=== PATIENT | female | born 1965 | race Caucasian/White ===

== ENCOUNTER → 2016-09-09 | Outpatient (CLI) | payer BC ==
--- NOTE | 2016-09-12 10:20 | MM ---
Reason for exam: screening (asymptomatic). Last mammogram was performed 4 years and 7 months ago. History: Patient is postmenopausal. Physical Findings: A clinical breast exam by your physician is recommended on an annual basis and results should be correlated with mammographic findings. MG Screening Mammo w CAD Bilateral CC and MLO view(s) were taken. Prior study comparison: February 16, 2012, bilateral digital screening mammo w/CAD. The breast tissue is heterogeneously dense. This may lower the sensitivity of mammography. There is no discrete abnormality. No significant changes when compared with prior studies. ASSESSMENT: Negative, BI-RAD 1 RECOMMENDATION: Routine screening mammogram of both breasts in 1 year.
== END | disposition home or self-care (01) ==
LOC: RADMAMWWP 14:39
PROVIDERS: ATTEND Family Medicine
DX: Z12.31 Encounter for screening mammogram for malignant neoplasm of breast (principal)

== ENCOUNTER 2020-01-02 08:30 | Day surgery (SDC) | payer BC, MEDICARE, OTHER ==
[~2020-01-02 08:30] MED LIST: LACTATED RINGERS 1,000 ML IV SCH
[2020-01-02 08:56] VITALS: TEMP 98.6
--- NOTE | 2020-01-02 09:12 | P.GSHP ---
History of Present Illness H&P Date: 01/02/20 Chief Complaint: GI bleed This a 54-year-old female referred from Dr. Earl. Patient rents today for colonoscopy due to issues with GI bleed. Past Medical History Past Medical History: GERD/Reflux, Hypertension Additional Past Medical History / Comment(s): KIDNEY STONES History of Any Multi-Drug Resistant Organisms: None Reported Past Surgical History: Section, Tubal Ligation Additional Past Surgical History / Comment(s): colonoscopy. lithotripsy. d & c Past Anesthesia/Blood Transfusion Reactions: Motion Sickness, Postoperative Nausea & Vomiting (PONV) Past Psychological History: No Psychological Hx Reported Smoking Status: Former smoker Past Alcohol Use History: None Reported Additional Past Alcohol Use History / Comment(s): SMOKED FOR 40+ .5PPD, QUITE SEVERAL YEARS Past Drug Use History: None Reported - Past Family History Mother Family Medical History: Cancer Medications and Allergies Home Medications Medication Instructions Recorded Confirmed Type Metoprolol Tartrate [Lopressor] 25 mg PO BID 04/17/14 12/31/19 History Omeprazole [PriLOSEC] 20 mg PO QAM 04/17/14 12/31/19 History ALPRAZolam [Xanax] 0.25 mg PO HS PRN 12/31/19 12/31/19 History Atorvastatin [Lipitor] 20 mg PO HS 12/31/19 12/31/19 History FLUoxetine HCL [PROzac] 20 mg PO QAM 12/31/19 12/31/19 History Meloxicam 7.5 mg PO BID 12/31/19 12/31/19 History Norethindrone-E.estradiol-Iron 1 tab PO DAILY 12/31/19 12/31/19 History [Junel Fe 1 mg-20 Mcg Tablet] Cholecalciferol [Vitamin D3] 1 tab PO 01/02/20 History Allergies Allergy/AdvReac Type Severity Reaction Status Date / Time nitrofurantoin AdvReac Itching Verified 12/31/19 11:52 [From Macrobid] nitrofurantoin AdvReac Itching Verified 12/31/19 11:52 macrocrystalline [From Macrobid] sulfamethoxazole AdvReac Itching Verified 12/31/19 11:52 [From Bactrim] trimethoprim [From Bactrim] AdvReac Itching Verified 12/31/19 11:52 Surgical - Exam Vital Signs Temp Pulse Resp Pulse Ox 98.6 F 68 16 98 01/02/20 08:55 01/02/20 08:55 01/02/20 08:55 01/02/20 08:55 - General well developed, well nourished, no distress - Eyes PERRL - ENT normal pinna - Neck no masses - Respiratory normal expansion - Cardiovascular Rhythm: regular - Abdomen Abdomen: soft, non tender Assessment and Plan Assessment: GI bleed. We'll perform colonoscopy.
[2020-01-02] MEDS ORDERED: LIDOCAINE 1% (10MG/ML) FOR IV START INTRADERMA ONE (09:13)
[2020-01-02] MEDS ORDERED: PROPOFOL 10 MG/ML 20 ML VIAL IV ONE (09:17)
--- NOTE | 2020-01-02 09:27 | P.OP ---
Date of Procedure: 01/02/20 Preoperative Diagnosis: Anemia Postoperative Diagnosis: External hemorrhoids Procedure(s) Performed: Colonoscopy Anesthesia: JOSE Surgeon: Jonathan Carrillo Pathology: none sent Condition: stable Disposition: PACU Description of Procedure: The patient's placed on the endoscopy table in the lateral position. She received IV sedation. Digital rectal exam performed which revealed external hemorrhoids. Flexible colonoscope was then placed patient anus and passed throughout the entire colon. The ileocecal valve sutures. The cecum, ascending and transverse colon appeared normal. The descending and sigmoid colon appeared normal. Back the rectum and this appeared normal. Scope withdrawn for patient. Is presumed patient may have had rectal bleeding from external hemorrhoids.
[2020-01-02 10:20] VITALS: BP 175/78; PULSE 88; RESP 18
== END 2020-01-02 10:23 | disposition home or self-care (01) ==
LOC: ORWHC2ENDO 08:30
PROVIDERS: ATTEND Surgery
DX: K64.4 Residual hemorrhoidal skin tags (principal); K92.2 Gastrointestinal hemorrhage, unspecified; D64.9 Anemia, unspecified; Z87.891 Personal history of nicotine dependence; I10 Essential (primary) hypertension; Z87.442 Personal history of urinary calculi; E78.2 Mixed hyperlipidemia; G56.03 Carpal tunnel syndrome, bilateral upper limbs; K21.9 Gastro-esophageal reflux disease without esophagitis; E55.9 Vitamin D deficiency, unspecified; Z98.51 Tubal ligation status; Z98.890 Other specified postprocedural states; Z83.6 Family history of other diseases of the respiratory system; Z82.61 Family history of arthritis; Z79.1 Long term (current) use of non-steroidal anti-inflammatories (NSAID); Z79.3 Long term (current) use of hormonal contraceptives; Z79.899 Other long term (current) drug therapy; Z88.2 Allergy status to sulfonamides; Z88.1 Allergy status to other antibiotic agents; Z91.012 Allergy to eggs; Z91.011 Allergy to milk products
CPT/HCPCS: 45378; J2704

== ENCOUNTER → 2021-03-24 | Outpatient (CLI) | payer BC ==
--- NOTE | 2021-03-24 10:48 | ECHOF ---
Referral Reason:I10 hypertension MEASUREMENTS -------- HEIGHT: 157.5 cm WEIGHT: 88.5 kg BP: 156/98 RVIDd: 2.8 cm (< 3.3) IVSd: 1.0 cm (0.6 - 1.1) LVIDd: 4.8 cm (3.9 - 5.3) LVPWd: 0.9 cm (0.6 - 1.1) IVSs: 1.6 cm LVIDs: 3.1 cm LVPWs: 1.6 cm LA Diam: 3.0 cm (2.7 - 3.8) LAESV Index (A-L): 24.73 ml/m Ao Diam: 3.4 cm (2.0 - 3.7) AV Cusp: 2.3 cm (1.5 - 2.6) MV EXCURSION: 14.273 mm (> 18.000) MV EF SLOPE: 70 mm/s (70 - 150) EPSS: 0.6 cm MV E Lebron: 0.81 m/s MV DecT: 177 ms MV A Lebron: 0.95 m/s MV E/A Ratio: 0.85 AR PHT: 635 ms RAP: 5.00 mmHg RVSP: 26.30 mmHg FINDINGS -------- Sinus rhythm. This was a technically good study. The left ventricular size is normal. Left ventricular wall thickness is normal. Overall left vent ricular systolic function is normal with, an EF between 60 - 65 %. The right ventricle is normal in size. Normal LA size by volume 22+/-6 ml/m2. The right atrium is normal in size. Interatrial and interventricular septum intact. There is aebg-ov-gecxmedx aortic regurgitation. There is trace to mild mitral regurgitation. Mild tricuspid regurgitation present. The pulmonic valve was not well visualized. The aortic root size is normal. Normal inferior vena cava with normal inspiratory collapse consistent with estimated right atrial pre ssure of 5 mmHg. There is no pericardial effusion. CONCLUSIONS -------- 1. The left ventricular size is normal. 2. Left ventricular wall thickness is normal. 3. Overall left ventricular systolic function is normal with, an EF between 60 - 65 %. 4. There is okgy-tz-bqvszgpc aortic regurgitation. 5. There is trace to mild mitral regurgitation. 6. Mild tricuspid regurgitation present. 7. There is no pericardial effusion. GREEN HIDE INSPECTOR: Makayla Melendez RDCS
== END | disposition home or self-care (01) ==
LOC: RADECHMAIN 08:28
PROVIDERS: ATTEND Family Medicine
DX: I08.1 Rheumatic disorders of both mitral and tricuspid valves (principal)
CPT/HCPCS: 93306

== ENCOUNTER → 2022-08-24 | Outpatient (CLI) | payer BC ==
[~2022-08-24] MED LIST changes: -LACTATED RINGERS 1,000 ML IV SCH; +REGADENOSON 0.4 MG/5 ML SYRINGE IV PRN
--- NOTE | 2022-08-24 10:26 | CA ---
Transthoracic Echo Report Name: Erika Green Age: 56 Gender: F : 1965 Exam Date: 08/24/2022 08:34 Exam Location: [place] [facility] Ht (in): 62 Wt (lb): 200 Ordering Physician: Pham Fontenot DO Attending/Referring Phys: Saadia Mayberry [facility] Manager [employer] Makayla Melendez RDCS Procedure CPT: Indications: R07.89 R0602 Cardiac Hx: Technical Quality: Good Contrast 1: Total Dose (mL): Contrast 2: Total Dose (mL): MEASUREMENTS (Male / Female) Normal Values 2D ECHO LV Diastolic Diameter PLAX 4.3 cm 4.2 - 5.9 / 3.9 - 5.3 cm LV Systolic Diameter PLAX 3.0 cm IVS Diastolic Thickness 1.1 cm 0.6 - 1.0 / 0.6 - 0.9 cm LVPW Diastolic Thickness 1.2 cm 0.6 - 1.0 / 0.6 - 0.9 cm LV Relative Wall Thickness 0.5 RV Internal Dim ED PLAX 3.2 cm LA Systolic Diameter LX 3.2 cm 3.0 - 4.0 / 2.7 - 3.8 cm LV Diastolic Volume MOD 4C 106.0 cm??? LV Systolic Volume MOD 4C 50.4 cm??? LV Ejection Fraction MOD 4C 52.5 % LV Diastolic Length 4C 7.7 cm LV Systolic Length 4C 6.3 cm LV Diastolic Volume MOD 2C 116.0 cm??? LV Systolic Volume MOD 2C 51.9 cm??? LV Ejection Fraction MOD 2C 55.3 % LV Diastolic Length 2C 9.2 cm LV Systolic Length 2C 7.2 cm LA Volume 49.5 cm??? 18 - 58 / 22 - 52 cm??? M-MODE Aortic Root Diameter MM 3.2 cm MV E Point Septal Separation 0.6 cm AV Cusp Separation MM 2.3 cm DOPPLER AV Peak Velocity 154.8 cm/s AV Peak Gradient 9.6 mmHg AI Peak Velocity 385.6 cm/s AI Peak Gradient 59.5 mmHg AI Pressure Half Time 689.4 ms MV Area PHT 3.5 cm??? Mitral E Point Velocity 94.4 cm/s Mitral A Point Velocity 103.1 cm/s Mitral E to A Ratio 0.9 MV Deceleration Time 217.1 ms MV E' Velocity 7.1 cm/s Mitral E to MV E' Ratio 13.4 TR Peak Velocity 230.7 cm/s TR Peak Gradient 21.3 mmHg Right Ventricular Systolic Press 26.3 mmHg FINDINGS Left Ventricle Left ventricular ejection fraction is estimated at 55-60 %. Left ventricular cavity size normal. Mildly increased septal wall thickness. Mildly increased posterior wall thickness. Normal left ventricular wall motion. Right Ventricle Normal right ventricular size and function. Right ventricular systolic pressure within normal limits. Right Atrium Normal right atrial size. Left Atrium Normal left atrial size. Mitral Valve Structurally normal mitral valve. Trace to mild mitral regurgitation. Aortic Valve Trileaflet aortic valve. Mild aortic regurgitation. Tricuspid Valve Structurally normal tricuspid valve. Trace to mild tricuspid regurgitation. Pulmonic Valve Structurally normal pulmonic valve. No pulmonic regurgitation. Pericardium Normal pericardium. No pericardial effusion. Aorta Normal size aortic root and proximal ascending aorta. CONCLUSIONS Normal LV systolic function Mild aortic regurgitation Previewed by: Dr. Bernardo Silverio MD (Electronically Signed) Final Date: 24 August 2022 10:25
--- NOTE | 2022-08-24 12:02 | CA ---
Lexiscan Nuclear Stress Test Report Name: Erika Green Exam Date: 08/24/2022 09:24 Exam Location: [place] Stress Ht (in): 62 Wt (lb): 200 BSA: 1.91 Ordering Phys: Pham Fontenot DO Referring Phys: Saadia Mayberry Technologist: REY, Age: 56 Gender: F : 1965 Procedure CPT: Indications: R07.89 R0602 ICD-10 Codes: Patient History: Chest pain and shortness of breath Medications: Meds past 24 hrs: Pretest Chest Pain: STRESS TEST Lexiscan Protocol Exercise Duration (min:sec): 02:[address] Depressions (mm): Angina Score: Mauro Score: Resting HR (bpm): 67 Peak HR (bpm): 104 Resting BP (mmHg): 105 / 70 Peak BP (mmHg): 120 / 81 MPHR: 165 Target HR: 140 % MPHR: 63 METS: 1.0 Total Dose: Peak Dose: Atropine: Double Product: 46529 BP Response: Stress Termination: Infusion complete Stress Symptoms: No chest pain or symptoms Stress Summary: ECG ANALYSIS Resting ECG: Normal sinus rhythm normal axis normal intervals Stress ECG: Patient received Lexiscan as a protocol did not have chest pain or diagnostic ST segment depression CONCLUSIONS Negative stress test by EKG criteria Cardiolite portion of the stress test will be reported separately Dr. Bernardo Silverio MD (Electronically Signed) Final Date: 24 August 2022 12:01
--- NOTE | 2022-08-25 10:50 | NM ---
EXAMINATION TYPE: NM stress lexiscan cardiolite DATE OF EXAM: 08/24/2022 COMPARISON: NONE HISTORY: Chest pain short of breath hypertension TECHNIQUE: After the intravenous administration of 9.5 mCi Tc 99m Sestamibi - Cardiolite resting SPE CT images acquired 45 minutes post injection. At peak stress 26.6 mCi Tc 99m Sestamibi - Stress images obtained 30 minutes post injection The patient was stressed with 0.4mg Lexiscan. FINDINGS: No fixed defects are evident. There is some diminished radiotracer at the insertion of the right vent ricle and left ventricle. No reversible stress defects on Spect images Wall motion is normal. Ejection fraction is calculated to be 75 %. IMPRESSION: 1. No stress-induced ischemic changes.
== END | disposition home or self-care (01) ==
LOC: RADNMMAIN 07:50
PROVIDERS: ATTEND Family Medicine
DX: I35.1 Nonrheumatic aortic (valve) insufficiency (principal); R07.89 Other chest pain; R06.02 Shortness of breath
CPT/HCPCS: 93017; 93306; 78452; A9500; J2785

== ENCOUNTER → 2024-01-29 | Outpatient (CLI) | payer BC ==
--- NOTE | 2024-02-04 12:11 | MM ---
Reason for Exam: Screening (asymptomatic). Last mammogram was performed 1 year(s) and 10 month(s) ago. Patient History: Menarche at age 11. First Full-Term at age 16. Postmenopausal. Risk Values: Mayela 5 year model risk: 1.0%. NCI Lifetime model risk: 6.3%. Prior Study Comparison: 02/16/2012 Bilateral Screening Mammogram, [facility]. 09/09/2016 Bilateral Screening Mammogram, [facility]. 04/17/2019 Bilateral Screening Mammogram, [facility]. 12/10/2020 Bilateral Screening Mammogram, [facility]. 03/23/2022 Bilateral Screening Mammogram, [facility]. Tissue Density: The breasts are heterogeneously dense, which may obscure small masses. Findings: Analyzed By CAD. The pattern is symmetrical. Pattern is stable. Benign spherical calcifications within the left breast. Couple benign punctate calcifications are within the right breast. No suspicious groups of microcalcifications, spiculated or lobular masses, architectural distortion or other secondary signs of malignancy are mammographically apparent. Overall Assessment: Benign, BI-RAD 2 Management: Screening Mammogram of both breasts in 1 year. A negative mammogram report should not preclude additional follow up of suspicious palpable abnormalities. Patient should continue monthly self breast exam. A clinical breast exam by your physician is recommended on an annual basis and results should be correlated with mammographic findings. Note on Mayela scores and lifetime risk: 1. A Mayela score greater than 3% is considered moderate risk. If this is the case, consider specialist referral to assess eligibility for a risk reducing agent. 2. If overall lifetime risk for the development of breast cancer is 20% or higher, the patient may qualify for future screening with alternating mammogram and breast MRI. [facility], , 02/04/2024 12:07 PM. Electronically signed and approved by: Flaco Cerda D.O. Radiologis
== END | disposition home or self-care (01) ==
LOC: RADMAMWWP 13:49
PROVIDERS: ATTEND Family Medicine
DX: Z12.31 Encounter for screening mammogram for malignant neoplasm of breast
CPT/HCPCS: 77067